=== PATIENT | male | born 1955 | race Caucasian/White ===

== ENCOUNTER 2025-06-12 16:51 | Emergency (ER) | payer MEDICARE, OTHER ==
[2025-06-12] MEDS ORDERED: Boostrix 0.5 ML (Tdap) VIAL (>/=7 yrs of age) ONE (17:10)
== END 2025-06-12 18:30 | disposition home or self-care (01) ==
LOC: ERS 16:51
DX: S80.812A Abrasion, left lower leg, initial encounter (principal); Z55.6 Problems related to health literacy; Z23 Encounter for immunization; V43.62XA Car passenger injured in collision with other type car in traffic accident, initial encounter; Y92.410 Unspecified street and highway as the place of occurrence of the external cause
CPT/HCPCS: 90471; 90715